=== PATIENT | male | born 1970 | race Caucasian/White ===

== ENCOUNTER 2024-07-12 14:47 | Inpatient (IN) | payer MEDICAID ==
[~2024-07-12] VITALS: Ht 170.2 cm; Wt 81.2 kg
[2024-07-12 15:37] LABS: BASOPHILS % 0.5 % (0.0-2.0); EOSINOPHILS % 0.6 % (0.0-5.0); HEMATOCRIT. 41.8 % (42.0-52.0); HEMOGLOBIN. 12.6 g/dL (14.0-18.0); LYMPHOCYTES % 16.5 % (20.0-50.0); MEAN CORPUSCULAR HEMOGLOBIN 23.2 pg (28.0-32.0); MEAN CORPUSCULAR HGB CONC 30.1 g/dL (31.0-37.0); MEAN PLATELET VOLUME 9.2 fl (7.4-10.4); MONOCYTES % 6.1 % (2.0-8.0); NEUTROPHILS % 76.3 % (40.0-76.0); PLATELET 190 x1000/uL (130-400); RED BLOOD CELL COUNT 5.42 mill/uL (4.7-6.1); RED CELL DISTRIBUTION WIDTH 17.8 % (11.6-14.6); WHITE BLOOD COUNT 4.4 x1000/uL (4.5-11.0)
[2024-07-12 15:38] LABS: DIFFERENTIAL COMMENT 1
[2024-07-12 15:45] LABS: INR 2.6; PROTHROMBIN TIME 25.1 sec (9.6-11.0)
[2024-07-12 15:47] LABS: CHLORIDE 90 mEq/L (98-107); POTASSIUM 3.4 mEq/L (3.5-5.1); SODIUM 128 mEq/L (136-145)
[2024-07-12 15:48] LABS: CARBON DIOXIDE 13 mEq/L (21-32)
[2024-07-12 15:51] LABS: AMMONIA 70 uMol/L (<32)
[2024-07-12 15:53] LABS: CREATININE 3.2 mg/dL (0.6-1.3); GLUCOSE 155 mg/dL (70-105); UREA NITROGEN BLOOD 12 mg/dL (9-23)
[2024-07-12 15:56] LABS: THYROID STIMULATING HORMONE 4.43 uIU/mL (0.55-4.78)
[2024-07-12 15:57] LABS: ETHANOL BLOOD < 10 mg/dL (<10)
[2024-07-12] MEDS ORDERED: VANCOMYCIN 1000MG/250ML 250 ML IV SCH (16:00)
[2024-07-12] MEDS: PIPERACILLIN/TAZO 3.375G/50ML 50 ML IV NR (16:22)
[2024-07-12 16:35] LABS: TROPONIN I HIGH SENSITIVITY 289 ng/L (3.0-53)
[2024-07-12] MEDS: SODIUM CHLORIDE 0.9% (SEPSIS BOLUS) IV ONE (16:35)
[2024-07-12 16:47] LABS: ALANINE AMINOTRANSFERASE 19 IU/L (10-49); ASPARTATE AMINOTRANSFERASE 56 IU/L (<34); BILIRUBIN DIRECT 4.3 mg/dL (<=3.0); BILIRUBIN TOTAL 6.8 mg/dL (0.1-1.0); PROTEIN TOTAL 7.4 g/dL (6.0-8.3)
[2024-07-12] MEDS: VANCOMYCIN 1G PREMIX 200 ML IV NR (16:50)
[2024-07-12 17:03] LABS: LACTIC ACID 11.9 mmol/L (0.4-2.0)
[2024-07-12] MEDS: NOREPINEPHRINE 8MG/250ML PMX 250 ML IV ONE (19:04)
[2024-07-12 21:42] VITALS: BP 66/50; PULSE 92; RESP 22; TEMP 35.5
[2024-07-12 22:00] VITALS: BP 78/67; PULSE 78; RESP 12; TEMP 35.3; O2SAT 87
[2024-07-12] MEDS ORDERED: PIPERACILLIN/TAZO 3.375G/100ML 100 ML IV SCH (22:00)
[2024-07-12] MEDS: ONDANSETRON HCL 4MG/2ML INJ IV PRN (22:50)
[2024-07-12] MEDS: VASOPRESSIN 20 UNIT in SODIUM CHLORIDE 0.9% 99 ML IV PRN (22:51)
[2024-07-12 23:00] VITALS: BP 106/76; RESP 20; O2SAT 84
[2024-07-12] MEDS ORDERED: ONDANSETRON HCL 4MG/2ML INJ IV PRN (23:30)
[2024-07-12] MEDS ORDERED: HYDROCODONE/ACETAMINOPHEN 5/325MG TABLET PO PRN (23:30)
[2024-07-12] MEDS ORDERED: ACETAMINOPHEN 325MG TABLET PO PRN (23:30)
[2024-07-12] MEDS: FENTANYL CITRATE/PF 50MCG/ML 2ML VIAL IV NR (23:32)
[2024-07-12] MEDS ORDERED: METF-416 PO (23:35)
[2024-07-12] MEDS ORDERED: PANT40TA51 PO (23:36)
[2024-07-12] MEDS ORDERED: ATOR40TA70 PO (23:45)
[2024-07-12] MEDS ORDERED: APIX5TAB PO (23:45)
[2024-07-12] MEDS ORDERED: NALOXONE HCL 0.4MG/ML VIAL IV PRN (23:45)
[2024-07-12] MEDS ORDERED: EMPA25TA PO (23:45)
[2024-07-12] MEDS ORDERED: METO-396 PO (23:45)
[2024-07-12] MEDS ORDERED: BUME2TAB7 PO (23:45)
[2024-07-12] MEDS ORDERED: HYDR5TAB13 PO ×2 (23:45)
[2024-07-13] VITALS (86 sets, daily range): BP systolic 68–143; BP diastolic 24–109; PULSE 82–110; RESP 8–27; TEMP 36–37.8; O2SAT 79–100
[2024-07-13] MEDS: NOREPINEPHRINE 32 MG in DEXT 5% WATER 218 ML IV PRN (01:01)
[2024-07-13] MEDS: EPINEPHRINE 5 MG in SODIUM CHLORIDE 0.9% 245 ML IV PRN (01:37)
[2024-07-13] MEDS: SODIUM BICARBONATE 100 MEQ in DEXTROSE 5% WATER 900 ML IV SCH (01:43)
[2024-07-13] MEDS: THIAMINE HCL 100 MG in SODIUM CHLORIDE 0.9% 49 ML IV NR (01:43)
[2024-07-13] MEDS ORDERED: IPRATROPIUM/ALBUTEROL 0.5-3(2.5)MG/3ML NEB HHN PRN (03:45)
[2024-07-13] MEDS ORDERED: IPRATROPIUM/ALBUTEROL 0.5-3(2.5)MG/3ML NEB HHN NR (05:45)
[2024-07-13] MEDS: LACTULOSE 20G/30ML UDC PO SCH ×2 (06:00→15:06)
[2024-07-13] MEDS ORDERED: PIPERACILLIN/TAZO 3.375G/50ML 50 ML IV SCH (06:00)
[2024-07-13 06:03] LABS: PROTHROMBIN TIME 28.9 sec (9.6-11.0)
[2024-07-13 06:13] LABS: AMMONIA 95 uMol/L (<32)
[2024-07-13 06:17] LABS: HEMATOCRIT. 40.7 % (42.0-52.0); MEAN CORPUSCULAR HEMOGLOBIN 23.8 pg (28.0-32.0); MEAN CORPUSCULAR HGB CONC 29.3 g/dL (31.0-37.0); MEAN CORPUSCULAR VOLUME 81.1 fL (80.0-94.0); MEAN PLATELET VOLUME 9.5 fl (7.4-10.4); PLATELET 208 x1000/uL (130-400); RED BLOOD CELL COUNT 5.03 mill/uL (4.7-6.1); RED CELL DISTRIBUTION WIDTH 17.9 % (11.6-14.6); WHITE BLOOD COUNT 11.7 x1000/uL (4.5-11.0)
[2024-07-13] MEDS: HYDROCORTISONE SOD SUCCINATE 100 MG/2 ML VIAL IV SCH (06:25)
[2024-07-13 06:26] LABS: POTASSIUM 3.7 mEq/L (3.5-5.1)
[2024-07-13 06:28] LABS: CALCIUM 9.5 mg/dL (8.7-10.4)
[2024-07-13 06:32] LABS: CREATININE 3.8 mg/dL (0.6-1.3)
[2024-07-13 07:54] LABS: DIFFERENTIAL COMMENT 1
[2024-07-13] MEDS: SODIUM BICARBONATE 8.4% 50MEQ/50ML SYR IV NR ×3 (08:07→10:39)
[2024-07-13] MEDS: PANTOPRAZOLE SODIUM 40 MG/VIAL IV SCH (08:07)
[2024-07-13] MEDS: PIPERACILLIN/TAZO 3.375G/50ML 50 ML IV SCH (08:07)
[2024-07-13 08:50] LABS: TRIGLYCERIDE 170 mg/dL (0-150)
[2024-07-13 08:51] LABS: LDL CHOLESTEROL 62 mg/dL (5-100)
[2024-07-13 08:52] LABS: CHOLESTEROL 97 mg/dL (<200); CREATINE KINASE 423 IU/L (46-171); HDL CHOLESTEROL < 20 mg/dL (>55); PHOSPHORUS 6.7 mg/dL (2.5-4.9)
[2024-07-13 09:09] LABS: HEPATITIS B SURFACE ANTIGEN NEGATIVE (Negative)
[2024-07-13] MEDS: SODIUM BICARBONATE 150 MEQ in DEXTROSE 5% WATER 850 ML IV SCH (09:12)
[2024-07-13] MEDS: PHYTONADIONE 10MG/ML INJ SUBCUT SCH (09:13)
[2024-07-13 09:30] LABS: HEPATITIS A AB IGM NEGATIVE (Negative); HEPATITIS B CORE AB IGM NEGATIVE (Negative)
[2024-07-13 09:31] LABS: HEPATITIS C AB NON REACTIVE (Neg) (Negative)
[2024-07-13 09:57] LABS: BG CARBOXYHEMOGLOBIN 0.6 % (0.5-1.5); BG DEOXYHEMOGLOBIN 1.5 % (0.0-5.0); BG FRACTION INSPIRED OXYGEN 24; BG HCO3 ACT 4.9 mmol/L (21.0-28.0); BG METHEMOGLOBIN 0.3 % (0.5-1.5); BG OXYGEN SATURATION 98.5 % (94.0-98.0); BG OXYHEMOGLOBIN 97.6 % (94.0-98.0); BG PCO2 14.9 mmHg (35.0-48.0); BG PH 7.132 (7.350-7.450); BG PO2 133.6 mmHg (83.0-108.0); BG SAMPLE SITE RIGHT RADIAL; BG TOTAL HEMOGLOBIN 13.3 g/dL (13.5-17.5); BG VENT MODE NASAL CANNULA
[2024-07-13 10:28] LABS: LACTIC ACID 19.2 mmol/L (0.4-2.0)
[2024-07-13] MEDS: IPRATROPIUM BROMIDE (0.02%) 0.5MG/2.5ML NEB HHN SCH (10:29)
[2024-07-13 11:52] LABS: INFLUENZA TYPE A Presumptive Negative (Pres. Neg.)
[2024-07-13 11:53] LABS: INFLUENZA TYPE B Presumptive Negative (Pres. Neg.)
[2024-07-13 11:54] LABS: RESPIRATORY SYNCYTIAL VIRUS Not Detected (Not Detectd)
[2024-07-13 12:05] LABS: *AMPHETAMINES SCREEN URINE NEGATIVE (NEGATIVE); *BARBITURATES SCREEN URINE NEGATIVE (NEGATIVE); *BENZODIAZEPINES SCREEN URINE NEGATIVE (NEGATIVE); *COCAINE SCREEN URINE NEGATIVE (NEGATIVE); CANNABINOID URINE SCREEN NEGATIVE (NEGATIVE); ECSTASY MDMA SCREEN URINE NEGATIVE (NEGATIVE); METHADONE URINE SCREEN NEGATIVE (NEGATIVE); OPIATES URINE SCREEN NEGATIVE (NEGATIVE); PHENCYCLIDINE URINE SCREEN NEGATIVE (NEGATIVE)
[2024-07-13 13:14] LABS: CHLORIDE 87 mEq/L (98-107); POTASSIUM 4.2 mEq/L (3.5-5.1); SODIUM 131 mEq/L (136-145)
[2024-07-13 13:15] LABS: CALCIUM 9.2 mg/dL (8.7-10.4)
[2024-07-13 13:20] LABS: GLUCOSE 89 mg/dL (70-105); UREA NITROGEN BLOOD 15 mg/dL (9-23)
[2024-07-13 13:31] LABS: CARBON DIOXIDE < 10 mEq/L (21-32)
[2024-07-13 14:07] LABS: PLATELET ESTIMATE NORMAL
[2024-07-13 17:49] LABS: CHLORIDE 86 mEq/L (98-107); POTASSIUM 3.8 mEq/L (3.5-5.1); SODIUM 132 mEq/L (136-145)
[2024-07-13 17:55] LABS: CREATININE 4.1 mg/dL (0.6-1.3); GLUCOSE 141 mg/dL (70-105); UREA NITROGEN BLOOD 17 mg/dL (9-23)
[2024-07-13 17:57] LABS: CREATINE KINASE 526 IU/L (46-171)
[2024-07-13 18:03] LABS: CARBON DIOXIDE < 10 mEq/L (21-32); TROPONIN I HIGH SENSITIVITY 2068 ng/L (3.0-53)
[2024-07-13] MEDS: THIAMINE HCL 100 MG in SODIUM CHLORIDE 0.9% 49 ML IV SCH (19:34)
[2024-07-13] MEDS: VANCOMYCIN 500MG PREMIX 100 ML IV SCH (19:35)
[2024-07-13 21:00] LABS: CHLORIDE 85 mEq/L (98-107); SODIUM 132 mEq/L (136-145)
[2024-07-13 21:05] LABS: CREATININE 4.5 mg/dL (0.6-1.3); GLUCOSE 101 mg/dL (70-105)
[2024-07-13 21:06] LABS: UREA NITROGEN BLOOD 18 mg/dL (9-23)
[2024-07-13 21:09] LABS: CARBON DIOXIDE < 10 mEq/L (21-32)
[2024-07-13] MEDS ORDERED: LORAZEPAM 1MG TABLET PO PRN (22:45)
[2024-07-13 22:55] LABS: BG BASE EXCESS -19.8 mmol/L (-2.0-3.0); BG CARBOXYHEMOGLOBIN 0.5 % (0.5-1.5); BG DEOXYHEMOGLOBIN 0.6 % (0.0-5.0); BG FRACTION INSPIRED OXYGEN 32; BG HCO3 ACT 5.2 mmol/L (21.0-28.0); BG METHEMOGLOBIN 0.3 % (0.5-1.5); BG OXYGEN SATURATION 99.4 % (94.0-98.0); BG OXYHEMOGLOBIN 98.6 % (94.0-98.0); BG PCO2 13.2 mmHg (35.0-48.0); BG PH 7.217 (7.350-7.450); BG PO2 166.6 mmHg (83.0-108.0); BG SAMPLE SITE RIGHT RADIAL; BG TOTAL HEMOGLOBIN 14.1 g/dL (13.5-17.5); BG VENT MODE NASAL CANNULA
[2024-07-13] MEDS: FOLIC ACID 1MG TABLET NG SCH (23:12)
[2024-07-13] MEDS: ALBUMIN HUMAN 25GM/100ML (25%) IV SCH (23:12)
[2024-07-13] MEDS: MIDODRINE HCL 5MG TABLET PO SCH (23:12)
[2024-07-13 23:55] LABS: BASOPHILS % 0.2 % (0.0-2.0); EOSINOPHILS % 0.1 % (0.0-5.0); HEMATOCRIT. 45.5 % (42.0-52.0); LYMPHOCYTES % 7.9 % (20.0-50.0); MEAN CORPUSCULAR HEMOGLOBIN 23.5 pg (28.0-32.0); MEAN CORPUSCULAR HGB CONC 28.5 g/dL (31.0-37.0); MEAN CORPUSCULAR VOLUME 82.4 fL (80.0-94.0); MEAN PLATELET VOLUME 9.9 fl (7.4-10.4); MONOCYTES % 6.8 % (2.0-8.0); PLATELET 143 x1000/uL (130-400); RED BLOOD CELL COUNT 5.52 mill/uL (4.7-6.1); RED CELL DISTRIBUTION WIDTH 18.5 % (11.6-14.6); WHITE BLOOD COUNT 10.3 x1000/uL (4.5-11.0)
[2024-07-13 23:57] LABS: DIFFERENTIAL COMMENT 1
[2024-07-13] MEDS: OCTREOTIDE 1,000 MCG in SODIUM CHLORIDE 0.9% 98 ML IV SCH (23:58)
[2024-07-14] VITALS (71 sets, daily range): BP systolic 39–127; BP diastolic 18–90; PULSE 78–109; RESP 12–77; TEMP 33.9–36.7; O2SAT 79–100
[2024-07-14 00:05] LABS: PROTHROMBIN TIME 37.3 sec (9.6-11.0)
[2024-07-14 00:09] LABS: CHLORIDE 85 mEq/L (98-107); POTASSIUM 4.3 mEq/L (3.5-5.1); SODIUM 132 mEq/L (136-145)
[2024-07-14 00:10] LABS: CALCIUM 8.9 mg/dL (8.7-10.4)
[2024-07-14 00:15] LABS: CREATININE 4.4 mg/dL (0.6-1.3); GLUCOSE 125 mg/dL (70-105)
[2024-07-14 00:16] LABS: UREA NITROGEN BLOOD 18 mg/dL (9-23)
[2024-07-14 00:47] LABS: CARBON DIOXIDE < 10 mEq/L (21-32)
[2024-07-14] MEDS: PHYTONADIONE 10 MG in DEXTROSE 5% WATER 49 ML IV NR (03:48)
[2024-07-14] MEDS: LACTULOSE 20G/30ML UDC PO SCH (04:07)
[2024-07-14 05:51] LABS: AMMONIA 99 uMol/L (<32)
[2024-07-14 05:54] LABS: HEMATOCRIT. 42.7 % (42.0-52.0); HEMOGLOBIN. 12.4 g/dL (14.0-18.0); MEAN CORPUSCULAR HEMOGLOBIN 23.7 pg (28.0-32.0); MEAN CORPUSCULAR VOLUME 81.8 fL (80.0-94.0); PLATELET 120 x1000/uL (130-400); RED BLOOD CELL COUNT 5.23 mill/uL (4.7-6.1); RED CELL DISTRIBUTION WIDTH 18.2 % (11.6-14.6); WHITE BLOOD COUNT 11.6 x1000/uL (4.5-11.0)
[2024-07-14 06:08] LABS: CHLORIDE 82 mEq/L (98-107); POTASSIUM 4.2 mEq/L (3.5-5.1); SODIUM 130 mEq/L (136-145)
[2024-07-14 06:09] LABS: CALCIUM 8.5 mg/dL (8.7-10.4); PROTHROMBIN TIME 43.3 sec (9.6-11.0)
[2024-07-14 06:14] LABS: GLUCOSE 152 mg/dL (70-105); UREA NITROGEN BLOOD 20 mg/dL (9-23)
[2024-07-14 06:58] LABS: INR 4.7
[2024-07-14 07:17] LABS: DIFFERENTIAL COMMENT 1
[2024-07-14] MEDS ORDERED: PHYTONADIONE 10MG/ML INJ IV SCH (08:00)
[2024-07-14] MEDS: PHYTONADIONE 10 MG in DEXTROSE 5% WATER 50 ML IV SCH (08:38)
[2024-07-14 09:05] LABS: CARBON DIOXIDE < 10 mEq/L (21-32)
[2024-07-14 09:57] LABS: ANISOCYTOSIS 2+; MICROCYTOSIS 1+; NUCLEATED RED BLOOD CELLS 2 /100 WBC; PLATELET ESTIMATE NORMAL
[2024-07-14 09:58] LABS: BG BASE EXCESS -20.8 mmol/L (-2.0-3.0); BG CARBOXYHEMOGLOBIN 0.8 % (0.5-1.5); BG DEOXYHEMOGLOBIN 2.5 % (0.0-5.0); BG FRACTION INSPIRED OXYGEN 40; BG HCO3 ACT 5.6 mmol/L (21.0-28.0); BG METHEMOGLOBIN 0.1 % (0.5-1.5); BG OXYGEN SATURATION 97.5 % (94.0-98.0); BG OXYHEMOGLOBIN 96.6 % (94.0-98.0); BG PCO2 15.9 mmHg (35.0-48.0); BG PH 7.163 (7.350-7.450); BG PO2 115.7 mmHg (83.0-108.0); BG SAMPLE SITE RIGHT RADIAL; BG TOTAL HEMOGLOBIN 12.9 g/dL (13.5-17.5); BG VENT MODE NASAL CANNULA
[2024-07-14] MEDS ORDERED: LIDOCAINE HCL 1% 10 MG/ML 10ML VIAL ONE (10:36)
[2024-07-14] MEDS: SODIUM BICARBONATE 8.4% 50MEQ/50ML SYR IV NR ×2 (12:20→14:51)
[2024-07-14] MEDS: PHENYLEPHRINE 100 MG in DEXT 5% WATER 240 ML IV PRN (14:18)
[2024-07-14 14:26] LABS: TROPONIN I HIGH SENSITIVITY 2714 ng/L (3.0-53)
[2024-07-14] MEDS ORDERED: EPINEPHRINE 10 MG in SODIUM CHLORIDE 0.9% 240 ML IV PRN (14:30)
[2024-07-14] MEDS: SODIUM CHLORIDE 0.9% 500 ML IV ONE (14:51)
[2024-07-14] MEDS: DOPAMINE 400MG/250ML PREMIX 250 ML IV PRN (14:51)
[2024-07-14] MEDS ORDERED: VANCOMYCIN 1.25GM/250ML IV SCH (15:00)
[2024-07-14] MEDS ORDERED: THIAMINE HCL 100MG TABLET PO SCH (22:45)
[2024-07-14] MEDS ORDERED: MULTIVITAMINS,THER W-MINERALS TABLET NG SCH (22:45)
== END 2024-07-14 15:23 | DRG 720 ==
LOC: ER 15:04 → CVICU 21:44
PROVIDERS: ADMIT Internal Medicine; ATTEND Internal Medicine
PROC: 30233K1 Transfusion of Nonautologous Frozen Plasma into Peripheral Vein, Percutaneous Approach (ICD-10-PCS; 2024-07-13)
PROC: 5A12012 Performance of Cardiac Output, Single, Manual (ICD-10-PCS; principal; 2024-07-14)
PROC: 0BH17EZ Insertion of Endotracheal Airway into Trachea, Via Natural or Artificial Opening (ICD-10-PCS; 2024-07-14)
PROC: 02HV33Z Insertion of Infusion Device into Superior Vena Cava, Percutaneous Approach (ICD-10-PCS; 2024-07-14)
PROC: B548ZZA Ultrasonography of Superior Vena Cava, Guidance (ICD-10-PCS; 2024-07-14)
DX: A41.9 Sepsis, unspecified organism (principal); J96.01 Acute respiratory failure with hypoxia; K76.7 Hepatorenal syndrome; N17.0 Acute kidney failure with tubular necrosis; J69.0 Pneumonitis due to inhalation of food and vomit; R65.21 Severe sepsis with septic shock; G92.8 Other toxic encephalopathy; D50.9 Iron deficiency anemia, unspecified; E11.65 Type 2 diabetes mellitus with hyperglycemia; E87.1 Hypo-osmolality and hyponatremia; I21.A1 Myocardial infarction type 2; E78.00 Pure hypercholesterolemia, unspecified; K76.0 Fatty (change of) liver, not elsewhere classified; K80.20 Calculus of gallbladder without cholecystitis without obstruction; R29.810 Facial weakness; E87.20 Acidosis, unspecified; E87.6 Hypokalemia; K76.89 Other specified diseases of liver; D68.4 Acquired coagulation factor deficiency; F11.90 Opioid use, unspecified, uncomplicated; F10.929 Alcohol use, unspecified with intoxication, unspecified; Y90.9 Presence of alcohol in blood, level not specified; K70.31 Alcoholic cirrhosis of liver with ascites; K76.82 Hepatic encephalopathy; E87.3 Alkalosis; I10 Essential (primary) hypertension; Z79.899 Other long term (current) drug therapy; Z78.1 Physical restraint status
CPT/HCPCS: 36415; 36556; 36600; 71045; 76705; 76770; 76937; 80048; 80061; 80076; 80202; 80305; 80320; 82105; 82140; 82375; 82550; 82805; 82962; 83036; 83605; 83735; 83880; 84100; 84145; 84443; 84484; 85025; 85384; 86705; 86709; 86850; 86900; 86920; 86927; 87340; 87420; 87804; 92950; 93005; 93306; 93970; 94070; 94640; 99291; A4606; C1752; J1265; J1720; J2003; J2354; J2405; J2470; J2543; J3010; J3370; J3411; J3430; J3490; J7030; J7050; J7060; J7070; P9017; P9047; G0480